=== PATIENT | male | born 1975 | race Caucasian/White ===

== ENCOUNTER 2022-04-11 00:44 | Emergency (ER) | payer SELFPAY ==
[~2022-04-11] VITALS: Ht 167.6 cm; Wt 79.4 kg
--- NOTE | 2022-04-11 00:59 | NUR ---
pt ambulated to bed 8
[2022-04-11] MEDS ORDERED: PANTOPRAZOLE 40 MG TABEC PO ONE (01:00)
[2022-04-11 01:05] VITALS: BP 137/82
--- NOTE | 2022-04-11 01:09 | NUR ---
PATIENT AMBULATED TO RR
[2022-04-11 01:13] LABS: BASOPHILS # (AUTO) 0.1 K/uL (0.00-0.22); BASOPHILS % (AUTO) 0.7 % (0.0-2.0); EOSINOPHILS % (AUTO) 0.1 % (0.0-4.0); HEMATOCRIT 45.1 % (36-52); HEMOGLOBIN 15.5 g/dL (12.0-18.0); LYMPHOCYTES # (AUTO) 1.4 K/uL (2.0-11.5); LYMPHOCYTES % (AUTO) 19.9 % (20.5-51.1); MEAN CORPUSCULAR HEMOGLOBIN 30 pg (27-31); MEAN CORPUSCULAR HGB CONC 34 g/dL (33-37); MEAN CORPUSCULAR VOLUME 86.4 fL (80-94); MONOCYTES # (AUTO) 0.4 K/uL (0.8-1.0); MONOCYTES % (AUTO) 5.7 % (1.7-9.3); NEUTROPHILS # (AUTO) 5.3 K/uL (1.8-7.7); NEUTROPHILS % (AUTO) 73.6 % (42.2-75.2); PLATELET COUNT (AUTO) 182 K/uL (140-450); RED BLOOD CELL COUNT(AUTO) 5.22 MIL/uL (4.20-6.10); RED CELL DISTRIBUTION WIDTH 14.8 % (11.6-13.7); WHITE BLOOD COUNT (AUTO) 7.3 K/uL (4.8-10.8)
--- NOTE | 2022-04-11 01:25 | NUR ---
Ultrasound at bedside.
[2022-04-11 01:28] LABS: ALBUMIN 3.7 g/dL (3.4-5.0); ANION GAP 12.8 (8-16); CARBON DIOXIDE 25.3 mmol/L (21-32); CREATININE 0.8 mg/dL (0.6-1.3); POTASSIUM 4.1 mmol/L (3.5-5.1); TOTAL BILIRUBIN 1.1 mg/dL (0.0-1.0)
[2022-04-11] MEDS ORDERED: ALUMINUM HYD/MAG/SIMETHICONE 30 ML UDC ONE (01:31)
[2022-04-11] MEDS ORDERED: DICYCLOMINE HCL LIQUID 10 MG/5 ML UDC ONE (01:31)
--- NOTE | 2022-04-11 01:32 | NUR ---
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 I WANT MY STUFF. I DONT WANT TO F BE HERE. F YOU. OVER AND OVER AGAIN. PATIENT NONCOMPLIANT AND SAYING "IM GOING TO FIND YOU, AND F YOU UP" AND STATING MORE VULGAR LANGUANGE. PATIENT STATED WE HAVE NO RIGHT TO HOLD HIM, BECAUSE HES NOT CURRENTLY IN A 51/50 HOLD. SECURITY CALLED TO BEDSIDE AND BETSY MADE AWARE. MD AT BEDSIDE.
[2022-04-11] MEDS: ALUMINUM HYD/MAG/SIMETHICONE 30 ML, DICYCLOMINE HCL LIQUID 20 MG, LIDOCAINE VISCOUS 2% ... PO ONE ×3 (01:45)
[2022-04-11] MEDS: NACL 0.9% 1,000 ML IV ONE (01:45)
[2022-04-11] MEDS: ONDANSETRON 4 MG/2 ML VIAL IVP ONE (01:53)
[2022-04-11] MEDS: PANTOPRAZOLE 40 MG INJ VIAL IVP ONE (01:54)
[2022-04-11 02:22] LABS: APPEARANCE,URINE CLEAR (CLEAR); BILIRUBIN,URINE NEGATIVE (NEGATIVE); BLOOD, URINE NEGATIVE (NEGATIVE); COLOR,URINE YELLOW (YELLOW); LEUKOCYTE ESTERASE ,URINE NEGATIVE (NEGATIVE); NITRITE, URINE NEGATIVE (NEGATIVE); UGLUCOSE NEGATIVE (NEGATIVE)
[2022-04-11] MEDS ORDERED: PANT40EC PO (02:57)
--- NOTE | 2022-04-11 03:20 | NUR ---
IV removed, catheter intact and site benign. Applied folded 4x4 gauze and tape to stop bleeding.
[2022-04-11 03:22] VITALS: BP 137/82
--- NOTE | 2022-04-11 03:22 | NUR ---
Patient discharged with v/s stable. Written and verbal after care instructions given [facility] and explained. Patient alert, oriented and verbalized understanding of instructions. Ambulatory with steady gait. All questions addressed prior to discharge. ID band removed. Patient advised to follow up with PMD. Rx of PANTOPRAZOLE SODIUM given.
== END 2022-04-11 03:22 | disposition home or self-care (01) ==
LOC: MED 00:44
DX: R10.30 Lower abdominal pain, unspecified (principal); R74.01 Elevation of levels of liver transaminase levels; Z79.899 Other long term (current) drug therapy
CPT/HCPCS: 36415; 76705; 80053; 81003; 83690; 85025; 96361; 96374; 96375; 99284; C9113; G0482; J2405; J7030; Q0092; 81002